=== PATIENT | female | born 1950 | race Caucasian/White ===

== ENCOUNTER → 2016-07-01 | Outpatient (CLI) | payer OTHER ==
[~2016-07-01] VITALS: Ht 157.5 cm; Wt 108.4 kg
[~2016-07-01] MED LIST: ALPRAZOLAM1 MG PO; BENAZEPRIL-HCT1 EA11 PO; DICLOFENAC POTA50 MG PO; HYDROCODON-ACE1 EAC5 PO; HYDROCODONE-AP1 EA11 PO; LIPITOR 20 MG T20 M1 PO; METFORMIN HCL500 MG PO; MOBIC7.5 MG PO; NORCO 5-325 TA1 EACH PO; TRAZODONE HCL100 MG PO
--- NOTE | ~2016-07-01 | HPC ---
[facility] [place] [address] [place] [address] PAIN MANAGEMENT CONSULTATION Name: INNA PINO [facility] #: [facility] [id number] Admission: 07/01/16 Attend Phys: Oliver Garcia DO Discharge: Date of : 48 Report #: [id number] THIS REPORT FOR: //name// CC: Oliver Sutton DATE OF SERVICE: 07/01/2016 CHIEF COMPLAINT: Low back pain, bilateral lower extremity pain. HISTORY OF PRESENT ILLNESS: As you know, the patient is a very pleasant 65-year-old female returning in followup visit to begin the authorization process for the next in a series of epidural injections. The patient was referred to our clinic by Dr. Rehan Diaz for these epidural injections. She has done very well with the initial injection, returning today with pain score 7-8/10, states pain is chronic and constant in sensation, cramping, numbness, and tingling in descriptors. She returns today stating that physical therapy was quite beneficial, she did 6 weeks of physical therapy formalized and continues to do the physical therapy at home. She returns for preauthorization of the next in a series of epidural injections. ALLERGIES: AZITHROMYCIN and AMBIEN. CURRENT MEDICATIONS: Trazodone, Meloxicam, atorvastatin, benazepril, hydrochlorothiazide, hydrocodone, Estrace and metformin. SOCIAL HISTORY: The patient denies to current tobacco use. She quit in 1997. Denies IV or illicit drug use. Denies any chronic alcohol use. Unaccompanied today. PHYSICAL EXAMINATION: VITAL SIGNS: Blood pressure 142/55, pulse 66, respiratory rate 20 and unlabored, the patient is 97% on room air, height 5 feet 2 inches tall, weight 239 pounds, and BMI calculated 43.7. GENERAL: Well-developed, well-nourished, well-hydrated, exogenously obese 65-year-old female, appearing stated age, pain is rated at around 7-8/10. HEENT: Normocephalic, atraumatic. Pupils are equal, round, and reactive to light. Extraocular muscles are intact. Speech is fluent. The patient deemed an excellent historian. EXTREMITIES: Show no clubbing, no cyanosis, and no edema. MUSCULOSKELETAL: Seated straight leg raising negative. Supine straight leg raising positive. Fabere's test negative. Modified Gaenslen's positive for axial low back pain. Gait is slightly antalgic. There is a wide broad gait. ASSESSMENT: 1. [place] [address] PAIN MANAGEMENT CONSULTATION Name: INNA PINO Florecita [facility] [id number] Admission: 07/01/16 Attend Phys: Oliver Garcia DO Discharge: Date of : 48 Report #: [id number] 2. Spinal stenosis of the lumbar spine. 3. Displacement of lumbar intervertebral disk with radiculopathy. 4. Lumbosacral spondylosis with radiculopathy. 5. Spondylolisthesis of L4 and L5 and L5 and S1. 6. Chronic intractable pain. PLAN: 1. The patient returns today in followup visit requesting to undergo next in the series of epidural injections under fluoroscopic guidance. The patient does realize that authorization needs to be obtained before we can undergo the procedure. Given the fact that the patient did so well with the initial injection, I do feel this would be an important portion of the treatment options available. We will begin the authorization process immediately, contact the patient once the authorization has been obtained to undergo epidural injection under fluoroscopic guidance to address lumbar radicular symptoms. 2. The patient was provided a prescription of diclofenac 50 mg dose 1 tab p.o. t.i.d., I have given the patient #90 with 2 refills. This will take the place of any other nonsteroidal anti-inflammatories including the Meloxicam therapy she is currently on. We will trial another nonsteroidal anti-inflammatory to determine if her pain will improve with this medication. 3. The patient was provided a refill prescription on hydrocodone. We have increased her dose though from 5 mg per tablet to 7.5 mg tablets, she was given #60 tablets to be taken as needed 3 times a day. She was given this prescription with no refills. 4. The patient was provided a prescription of Xanax 1 mg dose 1 tab p.o. b.i.d., I have given the patient #15, she is to utilize these when she is experiencing muscle spasming and insomnia secondary to her pain. She was given this prescription today, no refills. 5. The patient will return to our clinic once we have achieved precertification to undergo epidural injection under fluoroscopic guidance to address her lumbar radicular symptoms. Once we have achieved this authorization, we will have the patient return to undergo the procedure. <ELECTRONICALLY SIGNED> By: Oliver Garcia DO 07/07/16 0737 [id number] [id number] Oliver Garcia DO /nt
[2016-07-01 10:18] VITALS: BP 142/55
== END | disposition home or self-care (01) ==
LOC: PAIN 07:03
DX: M51.16 Intervertebral disc disorders with radiculopathy, lumbar region (principal); M48.06 Spinal stenosis, lumbar region; M43.17 Spondylolisthesis, lumbosacral region; G89.29 Other chronic pain; Z87.891 Personal history of nicotine dependence

== ENCOUNTER → 2016-07-08 | Outpatient (CLI) | payer OTHER ==
[~2016-07-08] VITALS: Ht 154.9 cm; Wt 108.0 kg
--- NOTE | ~2016-07-08 | HPC ---
[facility] [address] [place] [address] PAIN MANAGEMENT CONSULTATION Name: ODETTEINNA Florecita Room #: REG [facility].#: [id number] Admission: 07/08/16 Attend Phys: Oliver Garcia DO Discharge: Date of : 48 Report #: [id number] THIS REPORT FOR: //name// CC: Oliver Sutton MD DATE OF SERVICE: 07/08/2016 REFERRING PHYSICIAN: Asher Sutton M.D. CHIEF COMPLAINT: Low back pain and bilateral lower extremity pain. HISTORY OF PRESENT ILLNESS: As you know, the patient is a very pleasant 65-year-old female who returns today in followup visit with authorization to undergo epidural injection under fluoroscopic guidance. The patient places current pain score 5-6/10. States her pain is cramping, pressure and aching in sensation, exacerbated with standing, walking and lying down and improves with medications and hopefully epidural injections. The patient was referred to our clinic by her neurosurgeon, Dr. Rehan Diaz for epidural injections and management of her lumbar radicular symptoms. She returns today with authorization to undergo epidural injection. ALLERGIES: AZITHROMYCIN and AMBIEN. CURRENT MEDICATIONS: Trazodone, meloxicam, atorvastatin, benazepril, hydrochlorothiazide, hydrocodone, Estrace and metformin. SOCIAL HISTORY: The patient denies current tobacco use, she quit in 1997. Denies IV or illicit drug use. Denies any chronic alcohol use. She is unaccompanied today. PHYSICAL EXAMINATION: VITAL SIGNS: Blood pressure 120/73, pulse 81 and respiratory rate 12 and unlabored. The patient is 96% on room air. Height 5 feet 1 inch tall, weight 238.2 pounds and BMI calculated at 45. GENERAL: Well developed, well nourished, well hydrated, morbidly obese 65-year-old female appearing stated age, pain is rated today at around 5-6/10. HEENT: Normocephalic and atraumatic. Pupils equal, round and reactive to light. EXTREMITIES: Show no clubbing, no cyanosis and no edema. MUSCULOSKELETAL: Gait slightly antalgic again today, appears to be favoring left lower extremity over right. There is wide, broad, gait. Station is slightly forward flexed lumbar spine. Seated straight leg raising negative. Supine straight leg raising positive. [facility] [address] [place] [address] PAIN MANAGEMENT CONSULTATION Name: INNA PION Room #: REG [facility]#: [id number] Admission: 07/08/16 Attend Phys: Oliver Garcia DO Discharge: Date of : 48 Report #: [id number] ASSESSMENT: 1. Symptomatic lumbar radiculopathy. 2. Spinal stenosis of the lumbar spine. 3. Displacement of a lumbar intervertebral disk with radiculopathy. 4. Lumbosacral spondylosis with radiculopathy. 5. Spondylolisthesis of L4 on L5 and L5 on S1. 6. Chronic intractable pain. PLAN: 1. The patient returns today in followup visit having received precertification to undergo epidural injection under fluoroscopic guidance. The patient is hopeful to see similar improvement with this injection as she did with her previous injection performed in January of 2016. She has been advised of risks and benefits of the procedure. These risks include but are not necessarily limited to bleeding, bruising, infection, worsening pain, no relief of pain, also risk of temporary or permanent muscle weakness, temporary or permanent nerve damage, possible paralysis and . The patient states understood and wished to proceed. 2. The patient was provided prescription of hydrocodone 7.5/325 one tab p.o. q. 8 hours for pain. She was given #60 tablets. The release of that is to be 07/24/2016 in preparation for her trip to [facility]. 3. We will see the patient back in followup visit when she has returned from her trip to [facility]. At that time, we will discuss the efficacy of the second epidural injection and determine if a third and final in series of epidural injections would be necessary. PROCEDURE NOTE: DESCRIPTION OF PROCEDURE: Lumbar epidural steroid injection under fluoroscopic guidance. This is the second procedure of the first series that the patient is undergoing. After obtaining written consent, the patient was taken back to the fluoroscopy suite, placed in a prone position with pillow under the abdomen to decrease lumbar lordosis. The skin overlying the lumbosacral area was then prepped and draped in aseptic fashion. The lumbar vertebral interspace was then identified by AP fluoroscopy. The skin and subcutaneous tissue overlying the target site of injection was anesthetized with 3 mL 1% lidocaine. A 20-gauge 41/2 inch Tuohy needle was then advanced under fluoroscopic guidance towards the epidural space using a paramedian approach. The epidural space was identified using loss of resistance to air technique. After negative aspiration for heme or cerebrospinal fluid, a total of 1 mL of Omnipaque was injected. A lumbar epidurogram was confirmed using both AP and lateral fluoroscopy. After negative aspiration for heme or cerebrospinal fluid, 5 mL of a solution [address] [address] PAIN MANAGEMENT CONSULTATION Name: INNA PION Room #: REG [facility]#: [id number] Admission: 07/08/16 Attend Phys: Oliver Garcia DO Discharge: Date of : 48 Report #: [id number] containing 2 mL 40 mg per mL, 80 mg total triamcinolone, 3 mL of lidocaine 1% was injected in increments. Contrast spread was noted posterior epidural space. The needle was then retracted approximately half way and needle tract flushed with 1 mL of 1% lidocaine. Needle was then removed. There were no apparent sensory or motor deficits in the lower extremity following the procedure. A sterile bandage was placed over the injection site. The heart rate, pulse, oximetry and blood pressure were continuously monitored after the procedure. There were no apparent complications. The patient tolerated the procedure well and was carefully escorted to the recovery room in stable condition. There were no apparent complications. After meeting discharge criteria, the patient was then discharged home. <ELECTRONICALLY SIGNED> By: Oliver Garcia DO 07/14/16 1243 [id number] [id number] Oliver Garcia DO /nt
[2016-07-08 09:47] VITALS: BP 120/73
== END | disposition home or self-care (01) ==
LOC: PAIN 07:14
DX: M51.16 Intervertebral disc disorders with radiculopathy, lumbar region (principal); M48.06 Spinal stenosis, lumbar region; M47.27 Other spondylosis with radiculopathy, lumbosacral region; M43.16 Spondylolisthesis, lumbar region; G89.29 Other chronic pain; Z87.891 Personal history of nicotine dependence

== ENCOUNTER → 2016-11-24 | Outpatient (CLI) | payer OTHER ==
[~2016-11-24] VITALS: Ht 157.5 cm; Wt 112.5 kg
--- NOTE | ~2016-11-24 | HPC ---
[facility] [place] [address] [place] [address] PAIN MANAGEMENT CONSULTATION Name: ODETTEINNA P Room #: REG [facility]#: [id number] Admission: 11/24/16 Attend Phys: Oliver Garcia DO Discharge: Date of : 48 Report #: [id number] THIS REPORT FOR: //name// CC: Oliver Sutton MD DATE OF SERVICE: 11/24/2016 CHIEF COMPLAINT: Low back pain, bilateral lower extremity pain with paresthesias. HISTORY OF PRESENT ILLNESS: As you know, the patient is a very pleasant 66-year-old morbidly obese female returning in followup visit with recurrent low back pain, bilateral lower extremity pain. She is placing pain score at 8/10. States her pain is cramping, pressure and aching in sensation; exacerbated with standing, walking and lying; improves with heat, medications and previous epidural injections. She indicates pain is equal involving the low back, bilateral posterolateral thighs all the way to the ankles. She has returned today in followup visit to begin the next in the series of epidural injections and to discuss other treatment options. ALLERGIES: AZITHROMYCIN and AMBIEN. CURRENT MEDICATIONS: Hydrocodone, trazodone, diclofenac, benazepril, hydrochlorothiazide, atorvastatin, metformin. SOCIAL HISTORY: The patient denies tobacco use. She quit in 1997. Denies IV or illicit drug use. Denies any chronic alcohol use. She is unaccompanied at today's visit. IMAGING: No new imaging available. PHYSICAL EXAMINATION: VITAL SIGNS: Blood pressure 158/94, pulse is 87, respiratory rate 16, unlabored. The patient is 98% on room air, height 5 feet 2 inches tall, weight 248 pounds, BMI calculated 45.3. GENERAL: Well-developed, well-nourished, well-hydrated, morbidly obese 66-year-old female appearing her stated age. She is placing current pain score at 8/10. HEENT: Normocephalic, atraumatic. Pupils equal, round, reactive to light. Extraocular muscles are intact. Sclerae nonicteric, without injection. Cranial nerves 2-12 grossly intact. Speech is fluent. The patient deemed a good historian. LUNGS: Clear. No wheeze, rhonchi or rales. CARDIOVASCULAR: Regular. No appreciable gallop or rub. [address] [address] PAIN MANAGEMENT CONSULTATION Name: INNA PINO Florecita Room #: REG [facility]#: [id number] Admission: 11/24/16 Attend Phys: Oliver Garcia DO Discharge: Date of : 48 Report #: [id number] ABDOMEN: Soft, obese, nontender, nondistended, normoactive bowel sounds. EXTREMITIES: Show no clubbing, no cyanosis, no edema. MUSCULOSKELETAL: Lower extremity strength equal and symmetrical 5/5, intact to light touch from L1 through S2 dermatomes. Seated straight leg raising negative. Supine straight leg raising positive. Obinna test negative. Modified Gaenslen's is positive for axial low back pain. Ankle clonus negative. Babinski is negative. ASSESSMENT: 1. Symptomatic lumbar radiculopathy. 2. Spinal stenosis of the lumbar spine. 3. Displacement of lumbar intervertebral disk with radiculopathy. 4. Lumbosacral spondylosis with radiculopathy. 5. Spondylolisthesis of L4 on L5 and L5 on S1. 6. Lumbar degeneration. 7. Chronic intractable pain. PLAN: 1. The patient returns today in followup visit to discuss options for treatment for lumbar radicular pain secondary to spinal stenosis. As you are aware, the patient suffers from severe bilateral facet arthropathy at the L5-S1 level causing spinal stenosis changes at this level. This is classified as severe. We have had the patient undergo epidural injections in the past and she did note benefit. She returns today to discuss options for treatment including repeating epidural injection. We discussed the following today for treatment options. We discussed physical therapy, stretching exercises, core strengthening and weight loss, which would be necessary to improve core function. We discussed medication management with neuropathic pain medications, low dose opioids for pain control. I did indicate to the patient that this option is limited on how effective it could be and typically fails over time. We discussed epidural injections under fluoroscopic guidance for which the patient did receive some improvement in symptoms over the past year. We discussed spinal cord stimulator options and surgical options. After reviewing risks and benefits of all proposed treatment options, the patient wished to trial epidural injection again in hopes of improving pain further. The patient was advised risks and benefits of the epidural injection. We discussed the risks including bleeding, bruising, infection, worsening pain, no relief of pain, also risk of temporary or permanent muscle weakness, temporary or permanent nerve damage, possible paralysis and . The patient states she understood, but did wish to proceed. I did advise the patient today third republican payer restrictions do require that authorization be obtained before we could undergo this procedure. This procedure authorization takes anywhere from 4-7 working days to begin the process immediately. 2. The patient was given information about spinal cord stimulator technology. She will review the spinal cord stimulator information provided today. She does [address] [address] PAIN MANAGEMENT CONSULTATION Name: INNA PINO Room #: REG [facility]#: [id number] Admission: 11/24/16 Attend Phys: Oliver Garcia DO Discharge: Date of : 48 Report #: [id number] wish to move forward with a trial implantation. She should make appointments with the psychiatrist name provided today. Once she has completed the psychiatric evaluation and she is deemed an appropriate candidate from a psychological standpoint, we would then move forward with planning a temporary implantation. I did advise the patient this could take somewhere up to 2 months to complete before we could even consider the trial implantation. 3. The patient was provided a prescription of diclofenac 50 mg dose 1 tab p.o. t.i.d., I have given the patient #90 tablets, 3 refills, 4 months' worth of medication. 4. The patient was provided a prescription of hydrocodone 10/325 one half tab to one tab every 8 hours p.r.n. for pain, I have given the patient #90 tablets with no refills. 5. The patient will return to our clinic once we have received precertification to undergo epidural injection under fluoroscopic guidance. At that time, we will also discuss her review of the spinal cord stimulator technology. By: [id number] Oliver Garcia DO /nt
[2016-11-24 14:44] VITALS: BP 158/94
== END ==
LOC: PAIN 06:35
DX: M54.5 Low back pain (principal); M79.662 Pain in left lower leg; M79.661 Pain in right lower leg; R20.8 Other disturbances of skin sensation; E66.01 Morbid (severe) obesity due to excess calories; Z68.42 Body mass index [BMI] 45.0-49.9, adult; M47.26 Other spondylosis with radiculopathy, lumbar region; M48.06 Spinal stenosis, lumbar region; M51.16 Intervertebral disc disorders with radiculopathy, lumbar region; G89.29 Other chronic pain; I10 Essential (primary) hypertension; Z87.891 Personal history of nicotine dependence

== ENCOUNTER → 2016-12-30 | Outpatient (CLI) | payer OTHER ==
[~2016-12-30] VITALS: Ht 157.5 cm; Wt 110.8 kg
[~2016-12-30] MED LIST changes: +JANUMET XR 1001 EACH PO; +JANUMET XR 50-1 EAC1 PO
[2016-12-30 10:10] VITALS: BP 136/81
== END | disposition home or self-care (01) ==
LOC: PAIN 12-02 08:36
DX: M54.16 Radiculopathy, lumbar region (principal); M48.06 Spinal stenosis, lumbar region; M51.16 Intervertebral disc disorders with radiculopathy, lumbar region; M43.16 Spondylolisthesis, lumbar region; M51.36 Other intervertebral disc degeneration, lumbar region; G89.29 Other chronic pain; Z87.891 Personal history of nicotine dependence

== ENCOUNTER → 2017-04-13 | Outpatient (CLI) | payer OTHER ==
[~2017-04-13] VITALS: Ht 157.5 cm; Wt 107.1 kg
[~2017-04-13] MED LIST changes: +MOBIC15 MG PO
--- NOTE | ~2017-04-13 | HPC ---
[facility] [address] [place] [place] [address] PAIN MANAGEMENT CONSULTATION Name: ODETTEINNA P [id number] Admission: 04/13/17 Attend Phys: Oliver Garcia DO Discharge: Date of : 48 Report #: [id number] THIS REPORT FOR: //name// CC: ADRIANA Sutton DATE OF SERVICE: 04/13/2017 CHIEF COMPLAINT: Low back pain, bilateral lower extremity pain. HISTORY OF PRESENT ILLNESS: As you know, the patient is a 66-year-old morbidly obese female who returns today in followup visit with continued low back pain, lower extremity pain with paresthesias that involves bilateral lower extremities. Indicates pain is cramping, burning and tingling. Places current pain score at 7/10. Standing and walking exacerbate symptoms. Repositioning, medications, reclining and epidural injections appear to improve pain. The patient returns today in followup visit requesting to undergo the next in a series of epidural injections in hopes of improving pain further. She reports about a 50% improvement in overall pain with previous injection. This injection will last approximately 2 months. ALLERGIES: ZOLPIDEM. CURRENT MEDICATIONS: Metformin 500 mg twice a day, hydrocodone/acetaminophen 10/325 1 tab p.o. q. 8 hours p.r.n. for pain, diclofenac 50 mg 3 times a day, trazodone 100 mg once a day, benazepril/hydrochlorothiazide 20/25 once a day and simvastatin 20 mg per day. SOCIAL HISTORY: The patient denies tobacco, she quit in 1997. Denies IV or illicit drug use. Denies any chronic alcohol use. She is unaccompanied today. IMAGING: No new imaging available. PHYSICAL EXAMINATION: VITAL SIGNS: Blood pressure 151/77, pulse 77, respiratory rate 16 and unlabored. The patient is 97% on room air, height 5 feet 2 inches tall, weight 236.2 pounds, BMI calculated 43.2. GENERAL: Well-developed, well-nourished, well-hydrated, class 3, morbidly obese 66-year-old female appearing her stated age, placing current pain score 7/10. HEENT: Normocephalic, atraumatic. Pupils equal, round, reactive to light. Extraocular muscles are intact. EXTREMITIES: Show no clubbing, no cyanosis, no edema. MUSCULOSKELETAL: Seated straight leg raising negative. Supine straight leg raising positive. ROBERT test negative. Modified Gaenslen's positive for axial low back pain. [address] [address] PAIN MANAGEMENT CONSULTATION Name: INNA PINO Room #: REG [facility]#: [id number] Admission: 04/13/17 Attend Phys: Oliver Garcia DO Discharge: Date of : 48 Report #: [id number] ASSESSMENT: 1. Symptomatic lumbar radiculopathy. 2. Spinal stenosis of lumbar spine, progressively worsening. 3. Displacement of lumbar intervertebral disk with radiculopathy. 4. Lumbosacral spondylosis with radiculopathy. 5. Spondylolisthesis of L4 and L5 and L5 on S1. 6. Lumbar degeneration 7. Chronic intractable pain. PLAN: 1. The patient returns today in followup visit where we have discussed treatment options for lumbar radicular symptoms secondary to progressively worsening spinal stenosis. We discussed the possibility of repeating epidural injection as she did receive 50% improvement in overall pain lasting for nearly 2 months. We also discussed medication management changes. She is also experiencing bilateral hip pain, she wishes to further evaluate. We also discussed the possibility of surgical options whether this be a spinal cord stimulator or actual surgical decompression. The patient will consider these as options. She has decided to begin medications and trial next in a series of epidural injections. The patient was advised risks and benefits of lumbar epidural injections, these risks include but are not necessarily limited to bleeding, bruising, infection, worsening pain, no relief of pain, also risk of temporary or permanent muscle weakness, temporary or permanent nerve damage, possible paralysis and . The patient states she understood and wished to proceed. 2. The patient will begin Lyrica 50 mg dose, she was given samples of the medication today. She will begin 1 tab p.o. bedtime for 5 nights, then 2 tabs p.o. at bedtime for 5 nights, then 3 tabs p.o. at bedtime for 5 nights, then 1 tab p.o. q.a.m. and 3 tabs p.o. at bedtime for 5 days, then 2 tabs p.o. q.a.m. and 3 tabs p.o. at bedtime for 5 days, then 3 tabs twice a day. The patient was advised anytime during the titration of this medication she notes improvement in symptoms, she is to stabilize at that dose without further escalation. If no improvement in symptoms, no side effects, continue the titration as directed. We will review efficacy at followup visit. 3. The patient will undergo x-ray imaging of the bilateral hips. The patient wishes further evaluation of her hips and believes that some of her symptoms may be due to underlying osteoarthritis. The patient will undergo the imaging today. We will review the findings once they are available, she can contact our clinic about the findings tomorrow. 4. The patient will return to our clinic on an as needed basis for repeat epidural injection, she will contact the clinic about the efficacy of the [facility] [address] [place] [address] PAIN MANAGEMENT CONSULTATION Name: INNA PINO Room #: REG [facility].#: [id number] Admission: 04/13/17 Attend Phys: Oliver Garcia DO Discharge: Date of : 48 Report #: [id number] provided Lyrica. PROCEDURE NOTE DESCRIPTION OF PROCEDURE: Lumbar epidural steroid injection under fluoroscopic guidance. After obtaining written consent, the patient was taken back to fluoroscopy suite, placed in prone position with pillow under abdomen to decrease lumbar lordosis. Skin overlying lumbosacral area was prepped and draped in aseptic fashion. The lumbar intervertebral spaces were identified by AP fluoroscopy. Skin and subcutaneous tissue overlying the target site of injection was anesthetized with 3 mL of 1% lidocaine. A 20-gauge 4-1/2-inch Tuohy needle was advanced under fluoroscopic guidance towards the epidural space using a paramedian approach. Epidural space identified using loss of resistance to air technique. After negative aspiration for heme or cerebrospinal fluid, 1 mL of Omnipaque was injected. Lumbar epidurogram was confirmed using both AP and lateral fluoroscopy. After negative aspiration for heme or cerebrospinal fluid, 5 mL of a solution containing 2 mL 40 mg per mL, 80 mg total triamcinolone, 3 mL lidocaine 1% injected slowly. Needle retracted mcc, needle tract flushed with 3 mL 1% lidocaine. Needle then removed. Sterile bandage placed over injection site. No new motor deficits present in lower extremity following the procedure. The patient tolerated the procedure well, carefully escorted to the recovery in stable condition. No apparent complications. After meeting discharge criteria, the patient discharged home. By: [id number] Oliver Garcia DO /nt
[2017-04-13 11:06] VITALS: BP 151/77
== END | disposition home or self-care (01) ==
LOC: PAIN 06:55
DX: M51.16 Intervertebral disc disorders with radiculopathy, lumbar region (principal); M48.061 Spinal stenosis, lumbar region without neurogenic claudication; M47.27 Other spondylosis with radiculopathy, lumbosacral region; M43.16 Spondylolisthesis, lumbar region; G89.29 Other chronic pain; Z79.899 Other long term (current) drug therapy; Z87.891 Personal history of nicotine dependence

== ENCOUNTER → 2017-07-20 | Outpatient (CLI) | payer OTHER ==
[~2017-07-20] VITALS: Ht 157.5 cm; Wt 111.4 kg
[~2017-07-20] MED LIST changes: +LYRICA 50 MG50 MG PO; +VITAMIN D350000 UNIT PO
--- NOTE | ~2017-07-20 | HPC ---
[facility] [place] [address] [address] PAIN MANAGEMENT CONSULTATION Name: INNA PINO Room #: REG [facility].#: [id number] Admission: 07/20/17 Attend Phys: Oliver Garcia DO Discharge: Date of : 48 Report #: [id number] THIS REPORT FOR: //name// CC: ADRIANA Sutton DATE OF SERVICE: 07/20/2017 CHIEF COMPLAINT: Low back pain, bilateral lower extremity pain and paresthesias. HISTORY OF PRESENT ILLNESS: As you know, the patient is a very pleasant 66-year-old morbidly obese female, returning in followup visit with pain level of average of 8/10, states her pain is aching, pressure, sharp in sensation, exacerbated with walking, turning in bed, walking her dog. She indicates pain is alleviated with heat compresses, medications, reclining and rest. She also has noted good efficacy with previous epidural injections. She returns today in followup visit requesting epidural injection under fluoroscopic guidance and possible changes in her current treatment. ALLERGIES: ZOLPIDEM. CURRENT MEDICATIONS: Hydrocodone, Meloxicam, metformin, trazodone, Benicar, atorvastatin, Lyrica. SOCIAL HISTORY: The patient denies tobacco. She quit in 1997. Denies IV or illicit drug use. Denies any chronic alcohol use. She is unaccompanied today. IMAGING: No new imaging available. PQRS: The patient has history of bilateral knee osteoarthritis, no rheumatoid arthritis. She is not a fall risk. She has not had a fall in the past 3 months. She is not using any type of ambulatory devices. She is not on any blood thinners. She does have a history of hypertension, treated with medications. She has been on opioid therapy for greater than 6 weeks. She does not have an opioid contract at present. Risk tool for opioid abuse, low. Functional assessment 25/70. PHYSICAL EXAMINATION: VITAL SIGNS: Blood pressure 147/78, pulse is 80, respiratory rate 18, unlabored. The patient is 95% on room air. Height 5 feet 2 inches tall, weight 245.6 pounds, BMI calculated 44.9. GENERAL: Well-developed, well-nourished, well-hydrated, class 3, morbidly obese 66-year-old female, placing current pain score average 8/10. HEENT: Normocephalic, atraumatic. Pupils equal, round, reactive to light. [address] [address] PAIN MANAGEMENT CONSULTATION Name: ODETTEINNA Florecita Room #: REG [facility]#: [id number] Admission: 07/20/17 Attend Phys: Oliver Garcia DO Discharge: Date of : 48 Report #: [id number] Extraocular muscles are intact. Sclerae nonicteric, without injection. EXTREMITIES: Show no clubbing, no cyanosis, no edema. MUSCULOSKELETAL: Seated straight leg raising positive, supine straight leg raising positive. ROBERT test negative. Modified Gaenslen's positive for axial back pain. Ankle clonus negative. Babinski is negative. Gait mildly antalgic. ASSESSMENT: 1. Lumbar radiculopathy. 2. Spinal stenosis of lumbar spine. 3. Displacement of lumbar intervertebral disk with radiculopathy. 4. Lumbosacral spondylosis with radiculopathy. 5. Spondylolisthesis of L4 and L5 and L5 on S1. 6. Lumbar degeneration. 7. Chronic intractable pain. PLAN: 1. The patient returns today in followup visit requesting to undergo epidural injection under fluoroscopic guidance. She has seen excellent benefit with previous epidural injections, upwards of 60-70% improvement in overall pain. She returns today in followup visit to undergo the procedure today. Advised the risks and benefits of the procedure, states understood and wished to proceed. 2. The patient will be sent for physical therapy twice a week for 4 weeks. Physical therapy will help core strengthening and provide the patient with improvement in symptom generation. The patient will begin this process immediately. We have also recommended the patient be evaluated for weight loss programs, whether this be medically managed or more surgical management is up to the patient. 3. The patient was provided refill prescription of hydrocodone 10/325 one tab 3 times a day as needed for pain control, #90, releases of today and 4 weeks from today, 2 months' worth of medication. 4. We will see the patient back in followup visit in 2 months. At that time, we will discuss the efficacy of today's epidural injection and determine if continuation of medication therapy would be recommended. DESCRIPTION OF PROCEDURE: Lumbar epidural steroid injection under fluoroscopic guidance. After obtaining written consent, the patient was taken back to fluoroscopy suite, placed in prone position with pillow under abdomen to decrease lumbar lordosis. Skin overlying lumbosacral area then prepped and draped in aseptic fashion. Lumbar intervertebral spaces were identified by AP fluoroscopy. Skin and subcutaneous tissue overlying target site of injection was anesthetized with 3 mL of 1% lidocaine. A 20-gauge 4-1/2 inch Tuohy needle was advanced under fluoroscopic guidance [address] [address] PAIN MANAGEMENT CONSULTATION Name: INNA PINO Room #: [facility] Boyce#: [id number] Admission: 07/20/17 Attend Phys: Oliver Garcia DO Discharge: Date of : 48 Report #: [id number] towards the epidural space using paramedian approach. Epidural space identified using loss of resistance to air technique. After negative aspiration for heme or cerebrospinal fluid, 1 mL of Omnipaque was injected. A lumbar epidurogram was confirmed using both AP and lateral fluoroscopy. After negative aspiration for heme or cerebrospinal fluid, 5 mL of a solution containing 2 mL 40 mg per mL, 80 mg total triamcinolone, 3 mL lidocaine 1% injected slowly. Needle retracted jail, flushed with 1 mL of 1% lidocaine and removed. Sterile bandage placed over injection site. No new motor deficits present in the lower extremity following procedure. The patient tolerated procedure well, carefully escorted to recovery room in stable condition. No apparent complications. After meeting discharge criteria, the patient discharged home. <ELECTRONICALLY SIGNED> By: Oliver Garcia DO 07/28/17 [id number] Oliver Garcia DO /nt
[2017-07-20 09:38] VITALS: BP 147/78
== END | disposition home or self-care (01) ==
LOC: PAIN 07-06 06:09
DX: M51.16 Intervertebral disc disorders with radiculopathy, lumbar region (principal); M48.061 Spinal stenosis, lumbar region without neurogenic claudication; M47.27 Other spondylosis with radiculopathy, lumbosacral region; M43.17 Spondylolisthesis, lumbosacral region; G89.29 Other chronic pain; I10 Essential (primary) hypertension; Z88.8 Allergy status to other drugs, medicaments and biological substances; Z87.891 Personal history of nicotine dependence; Z79.899 Other long term (current) drug therapy; Z79.891 Long term (current) use of opiate analgesic; Z98.890 Other specified postprocedural states

== ENCOUNTER → 2017-10-06 | Outpatient (CLI) | payer OTHER ==
[~2017-10-06] VITALS: Ht 157.5 cm; Wt 104.5 kg
[~2017-10-06] MED LIST changes: -VITAMIN D350000 UNIT PO
--- NOTE | ~2017-10-06 | HPC ---
[facility] [place] [address] [place] [address] PAIN MANAGEMENT CONSULTATION Name: INNA PINO Room #: REG [facility].#: [id number] Admission: 10/06/17 Attend Phys: Oliver Garcia DO Discharge: Date of : 48 Report #: [id number] THIS REPORT FOR: //name// CC: Dr. Rehan Sutton MD DATE OF SERVICE: 10/06/2017 REFERRING PHYSICIAN: Asher Sutton MD CHIEF COMPLAINT: Low back pain, bilateral lower extremity pain and paresthesias. HISTORY OF PRESENT ILLNESS: As you know, the patient is a very pleasant 66-year-old female who returns today in followup visit reporting pain score of 8/10. She states she has started physical therapy and this has begun to improve symptoms. She has lost 15 pounds intentionally with improvement in her overall pain. She indicates pain today is aching, pressure, and sharp. She places pain score at 8/10, states walking, turning in bed, climbing stairs exacerbate symptoms, heat and cold compresses, medications, reclining, epidural injections and rest tend to improve pain. She returns today in followup visit requesting to undergo next in the series of epidural injections and also requesting refill on medications. ALLERGIES: ZOLPIDEM. CURRENT MEDICATIONS: Hydrocodone, Meloxicam, metformin, trazodone, Benicar, atorvastatin, and Lyrica. SOCIAL HISTORY: The patient denies tobacco. She quit in 1997. Denies IV or illicit drug use. Denies any chronic alcohol use. She is unaccompanied at today's visit. IMAGING: No new imaging available. PQRS: The patient has known osteoarthritis. No rheumatoid arthritis. She is not a fall risk, has not had a fall in 3 months. She does not use any type of ambulatory device. She is not on blood thinners. She does have a history of hypertension, treated with medications. She has been on opioids for greater than 6 weeks. She has a low assessment for opioid abuse. Functional assessment tool 45/70 indicating [id number] interference of daily activities secondary to pain. PHYSICAL EXAMINATION: [facility] [address] [place] [address] PAIN MANAGEMENT CONSULTATION Name: ODETTEINNA P Room #: REG [facility]#: [id number] Admission: 10/06/17 Attend Phys: Oliver Garcia DO Discharge: Date of : 48 Report #: [id number] VITAL SIGNS: Blood pressure 131/98, pulse is 100, respiratory rate 20 and unlabored, the patient is 97% on room air, height 5 feet 2 inches tall, weight 230.4 pounds, BMI calculated 42.1. GENERAL: Well-developed, well-nourished, well-hydrated, class 3 morbidly obese 66-year-old female, appears her stated age, placing current pain score at 8/10. HEENT: Normocephalic, atraumatic. Pupils are equal, round, and reactive to light. Extraocular muscles are intact. EXTREMITIES: Show no clubbing, no cyanosis, and no edema. MUSCULOSKELETAL: Lower extremity strength is symmetrical 5/5. Seated straight leg raising negative. Supine straight leg raising positive. Obinna's test negative. Modified Gaenslen's positive for axial low back pain. Ankle clonus negative. Babinski is negative. ASSESSMENT: 1. Symptomatic lumbar radiculopathy. 2. Spinal stenosis of lumbar spine, progressively worsening. 3. Displacement of lumbar intervertebral disk with radiculopathy. 4. Lumbosacral spondylosis with radiculopathy. 5. Spondylolisthesis of L4 on L5 and L5 on S1. 6. Lumbar degeneration. 7. Chronic intractable pain. 8. Morbid obesity. PLAN: 1. The patient returns today in followup visit indicating slight improvement in symptoms with weight loss of about 15 pounds and increasing physical activity through physical therapy. She does report pain now a level of 8/10, which is actually reduced from prior to starting the physical therapy and weight loss. She is pleased with her start of weight loss and is hopeful to continue the weight loss as she is making changes in diet and exercise activities. We applaud the patient for this effort and recommend that she continue. We discussed today the possibility of undergoing an epidural injection to address lumbar radicular symptoms secondary to her spinal stenosis. We have advised the patient of the risks and benefits of this procedure and she states she wishes to proceed. 2. I have provided the patient with a refill prescription of hydrocodone 10/325 mg 1 tab p.o. q.8 hours p.r.n. for pain. I have given the patient #90, release dates of today, 4 weeks from today, 8 weeks from today. We recommend the patient to use this medication only as necessary, she is not to rely on the medication prophylactically. We do not recommend escalating doses of this therapy. 3. The patient will see us back in followup visit in 3 months for medication management, earlier if she wishes to undergo next in the series of epidural injections. [address] [address] PAIN MANAGEMENT CONSULTATION Name: INNA PINO Room #: REG [facility]#: [id number] Admission: 10/06/17 Attend Phys: Oliver Garcia DO Discharge: Date of : 48 Report #: [id number] PROCEDURE NOTE DESCRIPTION OF PROCEDURE: L5-S1 paramedian epidural steroid injection under fluoroscopic guidance. After obtaining written consent, the patient was taken back to fluoroscopy suite, placed in prone position with pillow under abdomen to decrease lumbar lordosis. Skin overlying lumbosacral area then prepped and draped in aseptic fashion. Lumbar intervertebral spaces identified by AP fluoroscopy. Skin and subcutaneous tissue overlying target site of injection was anesthetized with 3 mL of 1% lidocaine. A 20-gauge 4-1/2-inch Tuohy needle advanced under fluoroscopic guidance towards the epidural space using a paramedian approach. Epidural space identified using loss of resistance to air technique. After negative aspiration for heme or cerebrospinal fluid, 1 mL of Omnipaque was injected. Lumbar epidurogram was confirmed using both AP and lateral fluoroscopy. After negative aspiration for heme or cerebrospinal fluid, 5 mL of a solution containing 2 mL 40 mg per mL, 80 mg total triamcinolone, 3 mL lidocaine 1% injected slowly. Needle retracted intermediate, flushed with 1 mL of 1% lidocaine and removed. Sterile bandage placed over injection site. No new motor deficits present in lower extremity following procedure. The patient tolerated the procedure well, carefully escorted to recovery room in stable condition. No apparent complication. After meeting discharge criteria, the patient discharged home. By: [id number] Oliver Garcia DO /nt
[2017-10-06 09:51] VITALS: BP 131/98
== END | disposition home or self-care (01) ==
LOC: PAIN 06:58
DX: M51.16 Intervertebral disc disorders with radiculopathy, lumbar region (principal); M48.061 Spinal stenosis, lumbar region without neurogenic claudication; M47.27 Other spondylosis with radiculopathy, lumbosacral region; M43.16 Spondylolisthesis, lumbar region; M43.17 Spondylolisthesis, lumbosacral region; G89.29 Other chronic pain; I10 Essential (primary) hypertension; M19.90 Unspecified osteoarthritis, unspecified site; E66.01 Morbid (severe) obesity due to excess calories; Z68.41 Body mass index [BMI] 40.0-44.9, adult; Z79.891 Long term (current) use of opiate analgesic; Z98.890 Other specified postprocedural states; Z87.891 Personal history of nicotine dependence; Z88.8 Allergy status to other drugs, medicaments and biological substances

== ENCOUNTER → 2017-12-01 | Outpatient (CLI) | payer OTHER ==
[~2017-12-01] VITALS: Ht 154.9 cm; Wt 99.3 kg
[~2017-12-01] MED LIST changes: +VITAMIN D350000 UNIT PO
--- NOTE | ~2017-12-01 | HPC ---
[facility] [place] [address] PAIN MANAGEMENT CONSULTATION Name: ODETTEINNA P Room #: [facility] [id number] Admission: 12/01/17 Attend Phys: Oliver Garcia DO Discharge: Date of : 48 Report #: [id number] THIS REPORT FOR: //name// CC: Dr. Rehan Sutton MD DATE OF SERVICE: 12/01/2017 REFERRING PHYSICIAN: Dr. Rehan Diaz. CHIEF COMPLAINT: Low back pain, bilateral lower extremity pain and paresthesias. HISTORY OF PRESENT ILLNESS: As you know, the patient is a very pleasant 67-year-old female who returns today in followup visit with pain score rated at 7/10. The patient states that previous epidural injection provided good benefit, but unfortunately, her symptoms returned quite quickly. She returns today in followup visit to undergo next in the series of epidural injections and discuss other options for treatment for ongoing lumbar radicular symptoms. The patient indicates no new injury, no new trauma. She continues with physical therapy, but does not feel that the PT is providing much in the way of improvement. She states that she is receiving marginal improvements. She is continuing to do her physical therapy at home as well. She returns requesting epidural injection and possible referral to Neurosurgery. ALLERGIES: ZOLPIDEM. CURRENT MEDICATIONS: Hydrocodone, meloxicam, metformin, trazodone, Benicar, atorvastatin, Lyrica. SOCIAL HISTORY: The patient denies tobacco. She quit in 1997. Denies IV or illicit drug use. Denies any chronic alcohol use. She is unaccompanied today. IMAGING: No new imaging available. PQRS: The patient has osteoarthritis of the bilateral knees and low back. No rheumatoid arthritis. She is not a fall risk, has not had a fall in the last 3 months. She does not have any use of ambulatory devices. She is not on blood thinner. She does have history of hypertension, treated with medications. She is on opioids and has been so for greater than 6 weeks. She has a low opioid abuse potential. Functional assessment indicates pain impact score of 54/70, severe interference. PHYSICAL EXAMINATION: [facility] [address] [place] [address] PAIN MANAGEMENT CONSULTATION Name: INNA PINO Room #: REG [facility]#: [id number] Admission: 12/01/17 Attend Phys: Oliver Garcia DO Discharge: Date of : 48 Report #: [id number] VITAL SIGNS: Blood pressure 132/93, pulse 94, respiratory rate 18, unlabored. The patient is 99% on room air. Height 5 feet 1 inch tall, weight 219 pounds, BMI calculated 41.4. GENERAL: Well-developed, well-nourished, well-hydrated, class 3 morbidly obese 67-year-old female. She appears her stated age. Pain is rated today at 7/10. HEENT: Normocephalic, atraumatic. Pupils equal, round, reactive to light. Extraocular muscles are intact. Sclerae nonicteric without injection. NEUROLOGIC: Cranial nerves 2-12 grossly intact. Speech is fluent. EXTREMITIES: Show no clubbing, no cyanosis, no edema. MUSCULOSKELETAL: Lower extremity strength is symmetrical 5/5. Muscle bulk and tone equal and symmetrical. There is slight giveaway strength noted with hip flexion and knee extension on the left when compared to the right. Pain is generated with maneuver. Seated straight leg raising negative. Supine straight leg raising positive. Obinna's test negative. Modified Gaenslen's positive for axial low back pain. Ankle clonus negative. Babinski is negative. She remains intact to light touch from L1 through S2 dermatomes. ASSESSMENT: 1. Symptomatic lumbar radiculopathy. 2. Spinal stenosis of the lumbar spine. 3. Displacement of lumbar intervertebral disk with radiculopathy. 4. Lumbosacral spondylosis with radiculopathy. 5. Spondylolisthesis of L4 on L5 and L5 on S1. 6. Degeneration of lumbar spine. 7. Morbid obesity. 8. Chronic intractable pain. PLAN: 1. The patient and I had a very long discussion today about options for treatment. We reviewed the 6 different ways to treat lumbar radicular symptoms secondary to findings in her lumbar region. We discussed physical therapy, stretching exercise, core strengthening and concerted effort at weight loss. We discussed lumbar epidural injections under fluoroscopic guidance for which the patient was referred to our clinic. We discussed spinal cord stimulator therapy and surgical options. The patient requests next in the series of epidural injections. She did receive benefit with previous epidural injection, but unfortunately, this was fairly short-lived. She is hopeful to see a good improvement in pain with this injection today. If symptoms do not improve with this injection, she is considering possible surgical option. 2. The patient will need an MRI of the lumbar spine if she does choose to move forward with surgery. We have written for an MRI of the lumbar spine without contrast to be obtained at her earliest convenience if she does choose to move forward with surgery. The patient will contact our clinic if she does choose to fill this imaging referral. If she chooses not to undergo the MRI, she will contact our clinic. 3. The patient was provided a refill prescription of hydrocodone 10 mg dose [address] [address] PAIN MANAGEMENT CONSULTATION Name: INNA PINO Room #: REG [facility].#: [id number] Admission: 12/01/17 Attend Phys: Oliver Garcia DO Discharge: Date of : 48 Report #: [id number] tab p.o. t.i.d., #90. Release today & 4 weeks, which will give the patient 2 more months' worth of medication. She was advised she will need to follow up with our clinic in 2 months for refill of medication therapy and interventional treatments if necessary. 4. The patient and I had a long discussion today about weight and how it affects her low back. I do believe her weight is affecting her pain perception certainly, but also is exacerbating her low back issues. A concerted effort at weight loss would be an appropriate treatment option I have suggested this patient today. She is trying to utilize exercise and diet, which has been mildly successful in that she has been losing some weight, but she may need to look for more aggressive treatment. This may be a criteria prior to surgery. I am not confident this will be the case, but there may be some consideration of her weight as a possible limiting factor from a surgical standpoint. She can discuss this with her surgeon if she chooses to move forward with surgical evaluation. 5. If the patient requests, we will be providing a referral for surgery. Again, she will need the MRI indicated above before the surgery consultation. We will determine if surgery referral is necessary based on today's epidural injection response. <ELECTRONICALLY SIGNED> By: Oliver Garcia DO 12/07/17 1223 [id number] [id number] Oliver Garcia DO /nt
--- NOTE | ~2017-12-01 | HPC ---
[address] [address] PAIN MANAGEMENT CONSULTATION Name: INNA PINO [facility] [id number] Admission: 12/01/17 Attend Phys: Oliver Garcia DO Discharge: Date of : 48 Report #: [id number] THIS REPORT FOR: //name// CC: Oliver Sutton DATE OF SERVICE: 12/01/2017 PROCEDURE NOTE PROCEDURE PERFORMED: Lumbar epidural injection under fluoroscopic guidance. DESCRIPTION OF PROCEDURE: After obtaining written consent, the patient was taken back to fluoroscopy suite, placed in prone position with pillow under abdomen to decrease lumbar lordosis. Skin overlying lumbosacral area were prepped and draped in aseptic fashion. Lumbar intervertebral spaces identified by AP fluoroscopy. Skin and subcutaneous tissue overlying target site of injection was anesthetized with 3 mL of 1% lidocaine. A 20-gauge 4-1/2 inch Tuohy needle advanced under fluoroscopic guidance towards the epidural space using paramedian approach. Epidural space identified using loss of resistance to air technique. After negative aspiration for heme or cerebrospinal fluid, 1 mL of Omnipaque injected. Lumbar epidurogram confirmed using both AP and lateral fluoroscopy. After negative aspiration for heme or cerebrospinal fluid, 5 mL of a solution containing 2 mL 40 mg per mL, 80 mg total triamcinolone, 3 mL lidocaine 1% injected slowly. Needle retracted detention, flushed with 1 mL of 1% lidocaine and removed. Sterile bandage placed over injection site. No new motor deficits present in lower extremity following the procedure. The patient tolerated procedure well, carefully escorted to recovery room in stable condition. No apparent complication. After meeting discharge criteria, the patient discharged home. By: 1230 1243 Oliver Garcia DO /nt
[2017-12-01 09:58] VITALS: BP 132/93
== END | disposition home or self-care (01) ==
LOC: PAIN 07:09
DX: M51.16 Intervertebral disc disorders with radiculopathy, lumbar region (principal); M48.061 Spinal stenosis, lumbar region without neurogenic claudication; M47.27 Other spondylosis with radiculopathy, lumbosacral region; M43.16 Spondylolisthesis, lumbar region; M43.17 Spondylolisthesis, lumbosacral region; E66.01 Morbid (severe) obesity due to excess calories; G89.29 Other chronic pain; I10 Essential (primary) hypertension; M17.0 Bilateral primary osteoarthritis of knee; Z87.891 Personal history of nicotine dependence; Z88.8 Allergy status to other drugs, medicaments and biological substances; Z79.899 Other long term (current) drug therapy; Z68.41 Body mass index [BMI] 40.0-44.9, adult; Z79.891 Long term (current) use of opiate analgesic